=== PATIENT | male | born 1955 | race Caucasian/White ===

== ENCOUNTER → 2019-09-16 | Outpatient (CLI) | payer OTHER ==
[2019-09-16 11:46] LABS: BILIRUBIN,TOTAL 0.4 MG/DL (0.1-1.0); CALCIUM 9.4 MG/DL (8.5-10.1); CREATININE SERUM 1.44 MG/DL (0.60-1.30); POTASSIUM 4.6 MMOL/L (3.6-5.0)
[2019-09-16 11:47] LABS: ALBUMIN 4.4 GM/DL (3.2-4.5); TOTAL PROTEIN 6.7 GM/DL (6.4-8.2)
== END ==
LOC: LAB FS 10:35
PROVIDERS: ATTEND Family Medicine
DX: E11.9 Type 2 diabetes mellitus without complications (principal); E03.9 Hypothyroidism, unspecified
CPT/HCPCS: 36415; 80053; 80061; 83036; 84443

== ENCOUNTER → 2020-03-15 | Outpatient (CLI) | payer OTHER ==
[2020-03-15 11:45] LABS: CALCIUM 9.8 MG/DL (8.5-10.1); CREATININE SERUM 1.41 MG/DL (0.60-1.30); POTASSIUM 4.3 MMOL/L (3.6-5.0)
[2020-03-15 11:46] LABS: ALBUMIN 4.3 GM/DL (3.2-4.5); BILIRUBIN,TOTAL 0.4 MG/DL (0.1-1.0); TOTAL PROTEIN 6.7 GM/DL (6.4-8.2)
== END ==
LOC: LAB FS 10:22
PROVIDERS: ATTEND Family Medicine
DX: E11.9 Type 2 diabetes mellitus without complications (principal); E03.9 Hypothyroidism, unspecified
CPT/HCPCS: 36415; 80053; 80061; 82043; 83036; 84443

== ENCOUNTER → 2020-03-28 | Outpatient (CLI) | payer OTHER ==
--- NOTE | 2020-03-28 12:51 | Diagnostic Imaging Report ---
INDICATION: Back pain. TIME OF EXAM: 11:19 AM. FINDINGS: Slight left convexity upper thoracic scoliotic curvature is noted. There is normal kyphotic curvature. The vertebral body heights are maintained. No acute compression fracture is identified. There is generalized degenerative disc disease with variable disc space narrowing. The pedicles and paraspinous line are intact. IMPRESSION: Thoracic spondylosis and scoliosis. No acute bony abnormality is detected. Dictated by: Dictated on workstation # [id number]
== END ==
LOC: RAD FS 11:00
PROVIDERS: ATTEND Family Medicine
DX: M47.814 Spondylosis without myelopathy or radiculopathy, thoracic region (principal); M41.84 Other forms of scoliosis, thoracic region
CPT/HCPCS: 72070

== ENCOUNTER → 2022-11-25 | Outpatient (CLI) | payer MEDICARE, OTHER ==
--- NOTE | 2022-11-25 16:39 | Diagnostic Imaging Report ---
INDICATION: Chest pain. TECHNIQUE: PA and lateral views were obtained. FINDINGS: The heart size, mediastinal configuration, and pulmonary vascularity are within normal limits. There is no pleural effusion, pneumothorax, or pneumonia. The osseous structures are unremarkable. IMPRESSION: No acute cardiopulmonary abnormality. Dictated by: Dictated on workstation # [id number]
== END ==
LOC: RAD FS 15:39
PROVIDERS: ATTEND Family Medicine
DX: R07.9 Chest pain, unspecified (principal); R05.2 Subacute cough; R06.02 Shortness of breath
CPT/HCPCS: 71046